=== PATIENT | male | born 1935 | race Caucasian/White ===

== ENCOUNTER 2020-04-17 13:53 | Emergency (ER) | payer OTHER ==
[~2020-04-17] VITALS: Ht 162.6 cm; Wt 106.6 kg
[~2020-04-17 13:53] MED LIST: CLARITIN10 MG PO; MOTRIN600 MG PO
[2020-04-17] MEDS ORDERED: CHILDREN'S ASPI81 MG (14:00)
== END 2020-04-17 21:00 | disposition home or self-care (01) ==
LOC: ER 13:53
DX: K57.90 Diverticulosis of intestine, part unspecified, without perforation or abscess without bleeding (principal); N28.1 Cyst of kidney, acquired; Z03.818 Encounter for observation for suspected exposure to other biological agents ruled out

== ENCOUNTER 2020-08-06 09:40 | Inpatient (IN) | payer OTHER ==
[~2020-08-06] VITALS: Ht 162.6 cm; Wt 97.5 kg
[~2020-08-06 09:40] MED LIST changes: +CHILDREN'S ASPI81 MG
[2020-08-06] MEDS ORDERED: LIPITOR40 M1 (10:38)
[2020-08-06] MEDS ORDERED: TOPROL XL50 M1 (10:38)
[2020-08-06] MEDS ORDERED: PROTONIX40 MG (10:39)
[2020-08-18] MEDS ORDERED: FLONASE16 GM (13:34)
[2020-08-18] MEDS ORDERED: SERTRALINE HCL50 MG (13:34)
[2020-08-18] MEDS ORDERED: ALLERGY RELIEF180 MG (13:34)
== END 2020-08-27 14:29 | disposition home or self-care (01) | DRG 194 ==
LOC: ER 09:40 → SEC-K 08-07 16:41 → MEDI 08-07 16:41
PROVIDERS: ADMIT Specialist; ATTEND Specialist
PROC: 3E0F7SF Introduction of Other Gas into Respiratory Tract, Via Natural or Artificial Opening (ICD-10-PCS; 2020-08-07)
PROC: B24BZZZ Ultrasonography of Heart with Aorta (ICD-10-PCS; 2020-08-08)
PROC: 5A09557 Assistance with Respiratory Ventilation, Greater than 96 Consecutive Hours, Continuous Positive Airway Pressure (ICD-10-PCS; principal; 2020-08-13)
DX: J10.1 Influenza due to other identified influenza virus with other respiratory manifestations (principal); R04.2 Hemoptysis; Z99.11 Dependence on respirator [ventilator] status; J18.9 Pneumonia, unspecified organism; G47.33 Obstructive sleep apnea (adult) (pediatric); I25.10 Atherosclerotic heart disease of native coronary artery without angina pectoris; G30.8 Other Alzheimer's disease; F02.80 Dementia in other diseases classified elsewhere, unspecified severity, without behavioral disturbance, psychotic disturbance, mood disturbance, and anxiety; Z20.822 Contact with and (suspected) exposure to COVID-19; Z95.5 Presence of coronary angioplasty implant and graft; Z99.89 Dependence on other enabling machines and devices

== ENCOUNTER 2020-09-14 10:11 | Inpatient (IN) | payer OTHER ==
[~2020-09-14] VITALS: Ht 175.3 cm; Wt 90.7 kg
[~2020-09-14 10:11] MED LIST changes: +ALLERGY RELIEF180 MG; +FLONASE16 GM; +LIPITOR40 M1; +PROTONIX40 MG; +SERTRALINE HCL50 MG; +TOPROL XL50 M1
--- NOTE | 2020-09-14 10:30 | NUR ---
SE RECIBE PTE EN AREA DE CHEST PAIN, SE UBICA EN IJEOMA #17, SE CONECTA A MONITOR CARDIACO Y OXIMETRIA DE PULSO. PACIENTE DESCOMPENSADO RESPIRATORIAMENTE, SE COLOCA CANULA NASAL A 5 LITROS Y SE NOTIFICA A PERSONAL DE TERAPIA RESPIRATORIA PARA COLECCION DE MUESTRAS Y TRATAMIENTO. SE CANALIZA Y SE COLECTAN MUESTRAS DE LABORATORIO BAJO MEDIDAS ASEPTICAS Y SE ADMINISTRAN MEDICAMENTOS GABRIELLE ORDEN MEDICA LOS CUALES PTE AL MOMENTO NO PRESENTA REACCION ADVERSA.
--- NOTE | 2020-09-14 10:39 | NUR ---
SE RECIBE PTE ALERTA, ORIENTADO EN VALDO CONNIE ESFERAS. PTE REFIERE SENTIR DIFICULTAD RESPIRATORIA DESDE HACEN CONNIE POWELL. PTE ESTUVO ADMITIDO POR DR.MARCUS MONTOYA CON DIAGNOSTICO DE PNEUMONIA.
--- NOTE | 2020-09-14 11:49 | NUR ---
PERSONAL DE TERAPIA RESPIRATORIA NEELAM TRATAMIENTO Y COLOCA A PTE CON BIPAP CON PARAMETROS ORDENADOS. PACIENTE TOLERA TRATAMIENTO, SATURANDO AL MOMENTO 100% CON OXIMETRIA DE PULSO. SE MANTIENE BAJO OBSERVACION POR CAMBIOS EN CONDICION.
--- NOTE | 2020-09-14 16:04 | NUR ---
SE RECIBE PTE MASUCLINO DE 84 ANOS DE EDAD EN IJEOMA CON BARANDAS ELEVADAS EN POSICION HIGH AGUDELO. PTE ALERTA, ORIENTADO EN AVLDO CONNIE ESFERAS. ASISTIDO RESPIRATORIAMENTE POR BIPAP PARAMETROS IPAP12 EPAP6 FO2-50 Y RATE 12. AL MOMENTO PTE SATURANDO 98%. CONECTADO A MONITOR CARDIACO S/V ESTABLES DENTRO DE [place] CONDICION. CANALIZACION PATENTE JOJO DE EDEMA Y ERITEMA. PENDIENTE CONSULTA CON DEL SERVICIO DE MEDICINA INTERNA.
[2020-09-15] MEDS ORDERED: BANOPHEN25 MG (13:34)
[2020-09-15] MEDS ORDERED: FAMOTIDINE20 MG (13:34)
[2020-09-15] MEDS ORDERED: LOPRESSOR25 MG (13:34)
[2020-09-15] MEDS ORDERED: DONEPEZIL HCL10 MG (13:34)
[2020-09-15] MEDS ORDERED: IRBESARTAN150 MG (13:34)
== END 2020-09-23 06:42 | disposition expired | DRG 189 ==
LOC: ER 10:11 → MEDJ 19:00
PROVIDERS: ADMIT Specialist; ATTEND Specialist
PROC: 5A09557 Assistance with Respiratory Ventilation, Greater than 96 Consecutive Hours, Continuous Positive Airway Pressure (ICD-10-PCS; principal; 2020-09-14)
PROC: 4A12X4Z Monitoring of Cardiac Electrical Activity, External Approach (ICD-10-PCS; 2020-09-14)
PROC: 02HV33Z Insertion of Infusion Device into Superior Vena Cava, Percutaneous Approach (ICD-10-PCS; 2020-09-16)
DX: J96.00 Acute respiratory failure, unspecified whether with hypoxia or hypercapnia (principal); J18.9 Pneumonia, unspecified organism; R04.2 Hemoptysis; N17.8 Other acute kidney failure; R04.89 Hemorrhage from other sites in respiratory passages; J44.9 Chronic obstructive pulmonary disease, unspecified; I11.0 Hypertensive heart disease with heart failure; I50.9 Heart failure, unspecified; G30.9 Alzheimer's disease, unspecified; F02.80 Dementia in other diseases classified elsewhere, unspecified severity, without behavioral disturbance, psychotic disturbance, mood disturbance, and anxiety; Z66 Do not resuscitate; Z20.822 Contact with and (suspected) exposure to COVID-19; J84.10 Pulmonary fibrosis, unspecified